=== PATIENT | male | born 1975 | race Caucasian/White ===

== ENCOUNTER 2023-10-30 15:20 | Inpatient (IN) | payer OTHER ==
[2023-10-30 15:44] VITALS: BMI 23.1
[2023-10-30] MEDS ORDERED: guaiFENesin 600 MG TABLET.ER (FP) PO PRN (17:36)
[2023-10-30] MEDS ORDERED: IBUPROFEN 400 MG TABLET (FP) PO PRN (17:36)
[2023-10-30] MEDS ORDERED: DICYCLOMINE HCL 10 MG CAPSULE PO PRN (17:36)
[2023-10-30] MEDS ORDERED: BENZOCAINE/MENTHOL (CHLORASEPTIC ) LOZENGE MM PRN (17:36)
[2023-10-30] MEDS ORDERED: hydrOXYzine PAMOATE 25 MG CAPSULE (FP) PO PRN (17:36)
[2023-10-30] MEDS ORDERED: NALOXONE HCL (KLOXXADO) 8 MG SPRAY NS PRN (17:36)
[2023-10-30] MEDS ORDERED: LOPERAMIDE HCL 2 MG CAPSULE PO PRN (17:36)
[2023-10-30] MEDS ORDERED: IBUPROFEN 600 MG TABLET (FP) PO PRN (17:36)
[2023-10-30] MEDS ORDERED: BISMUTH SUBSALICYLATE 524 MG/30 ML PO PRN (17:36)
[2023-10-30] MEDS ORDERED: chlordiazePOXIDE HCL 25 MG CAPSULE PO PRN (17:36)
[2023-10-30] MEDS ORDERED: MAGNESIUM HYDROX 2400MG/30ML ORAL SUSPENSION 30 ML CUP PO PRN (17:36)
[2023-10-30] MEDS ORDERED: ACETAMINOPHEN 325 MG TABLET (FP) PO PRN (17:36)
[2023-10-30] MEDS ORDERED: ONDANSETRON *ODT* 4 MG TABLET SL PRN (17:36)
[2023-10-30] MEDS ORDERED: MAG HYDROX/AL HYDROX/SIMETH 30 ML UNIT-DOSE CUP PO PRN (17:36)
[2023-10-30] MEDS ORDERED: POLYETHYLENE GLYCOL (HEALTHYLAX) 3350 17 GM PACKET PO PRN (17:36)
[2023-10-30] MEDS ORDERED: BENZONATATE 200 MG CAPSULE PO PRN (17:36)
[2023-10-30] MEDS ORDERED: NALOXONE HCL 0.4 MG/ML VIAL IM PRN (17:36)
[2023-10-30] MEDS: chlordiazePOXIDE HCL 25 MG CAPSULE PO SCH (22:14)
[2023-10-30] MEDS: THIAMINE HCL 100 MG TABLET (FP) PO SCH (22:14)
[2023-10-30] MEDS: MELATONIN 5 MG TABLETS PO SCH (22:14)
[2023-10-31] MEDS: chlordiazePOXIDE HCL 25 MG CAPSULE PO SCH ×4 (05:29→22:24)
[2023-10-31] MEDS: PRENATAL VITAMINS W/ FOLIC ACID TABLET (FP) PO SCH (10:10)
[2023-10-31 10:43] LABS: HEMATOCRIT 42.2 % (35.4-49); HEMOGLOBIN 14.2 GM/dL (11.7-16.9); MCH 30.4 pg (25.7-33.7); MCHC 33.7 g/dl (32.0-35.9); MEAN CELL VOLUME 90.3 fl (80-96); MEAN PLT VOLUME 6.6 fl (7.5-11.1); PLATELET COUNT 279 10^3/uL (134-434); RBC 4.67 M/mm3 (4.00-5.60); RDW 14.3 % (11.9-15.9); WHITE BLOOD COUNT 10.2 K/mm3 (4.0-10.0)
[2023-10-31 11:03] LABS: CHLORIDE 102 mmol/L (98-107); POTASSIUM 4.4 mmol/L (3.5-5.1); SODIUM 136 mmol/L (136-145)
[2023-10-31 11:07] LABS: BLOOD UREA NITROGEN 19.3 mg/dL (7-18); CALCIUM 9.3 mg/dL (8.5-10.1); GLUCOSE,RANDOM 127 mg/dL (74-106)
[2023-10-31 11:08] LABS: ALBUMIN 3.3 g/dl (3.4-5.0); ANION GAP 4 mmol/L (4-13); CO2 29 mmol/L (21-32)
[2023-10-31 11:11] LABS: CREATININE 0.6 mg/dL (0.55-1.3); SGOT/AST 29 U/L (15-37); SGPT/ALT 49 U/L (13-61)
[2023-10-31 11:12] LABS: BILIRUBIN,TOTAL 0.8 mg/dL (0.2-1); TOT PROT 6.5 g/dl (6.4-8.2)
[2023-10-31 11:13] LABS: ALK PHOS 94 U/L (45-117)
[2023-10-31] MEDS: THIAMINE HCL 100 MG TABLET (FP) PO SCH (22:24)
[2023-10-31] MEDS: MELATONIN 5 MG TABLETS PO SCH (22:24)
[2023-11-01] MEDS: chlordiazePOXIDE HCL 25 MG CAPSULE PO SCH ×4 (05:27→22:27)
[2023-11-01] MEDS: PRENATAL VITAMINS W/ FOLIC ACID TABLET (FP) PO SCH (10:03)
[2023-11-01] MEDS: MELATONIN 5 MG TABLETS PO SCH (22:27)
[2023-11-01] MEDS: THIAMINE HCL 100 MG TABLET (FP) PO SCH (22:27)
[2023-11-02] MEDS ORDERED: chlordiazePOXIDE HCL 10 MG CAPSULE PO PRN
[2023-11-02] MEDS: chlordiazePOXIDE HCL 10 MG CAPSULE PO SCH ×4 (05:45→22:13)
[2023-11-02] MEDS: PRENATAL VITAMINS W/ FOLIC ACID TABLET (FP) PO SCH (10:06)
[2023-11-02] MEDS: MELATONIN 5 MG TABLETS PO SCH (22:12)
[2023-11-02] MEDS: THIAMINE HCL 100 MG TABLET (FP) PO SCH (22:13)
[2023-11-02] MEDS: METHOCARBAMOL 500 MG TABLET PO PRN (22:14)
[2023-11-03] MEDS: chlordiazePOXIDE HCL 10 MG CAPSULE PO SCH ×2 (05:34→17:29)
[2023-11-03] MEDS: PRENATAL VITAMINS W/ FOLIC ACID TABLET (FP) PO SCH (09:19)
[2023-11-03] MEDS: MELATONIN 5 MG TABLETS PO SCH (22:13)
[2023-11-03] MEDS: THIAMINE HCL 100 MG TABLET (FP) PO SCH (22:13)
[2023-11-03] MEDS: METHOCARBAMOL 500 MG TABLET PO PRN (22:14)
[2023-11-04] MEDS ORDERED: chlordiazePOXIDE HCL 10 MG CAPSULE PO ONE (05:00)
[2023-11-04 06:04] VITALS: RESP 16
[2023-11-04 09:08] VITALS: BP 102/65; PULSE 64; TEMP 97.7
[2023-11-04] MEDS: PRENATAL VITAMINS W/ FOLIC ACID TABLET (FP) PO SCH (09:45)
== END 2023-11-04 11:02 | disposition home or self-care (01) | DRG 775 ==
LOC: YASAS 15:20 → Y3N 18:46
PROVIDERS: ADMIT Allergy & Immunology; ATTEND Allergy & Immunology
PROC: HZ2ZZZZ Detoxification Services for Substance Abuse Treatment (ICD-10-PCS; principal; 2023-10-30)
DX: F10.230 Alcohol dependence with withdrawal, uncomplicated (principal); G47.00 Insomnia, unspecified; I10 Essential (primary) hypertension; E11.59 Type 2 diabetes mellitus with other circulatory complications; M54.50 Low back pain, unspecified; G89.29 Other chronic pain; N40.0 Benign prostatic hyperplasia without lower urinary tract symptoms
CPT/HCPCS: 36415; 80053; 80307; 82962; 85027; 86780; 87635; 93005; 93010